=== PATIENT | male | born 1995 | race Caucasian/White ===

== ENCOUNTER 2017-04-05 12:29 | Emergency (ER) | payer MEDICAID ==
[2017-04-05 12:43] VITALS: BP 127/85
--- NOTE | 2017-04-05 13:35 | ED Physician Documentation ---
PD HPI UPPER EXT INJURY - Stated complaint Stated Complaint: R HAND INJURY - Chief complaint Chief Complaint: Ext Problem - History obtained from History obtained from: Patient - History of Present Illness Location: Right, Hand Type of injury: Fall Where injury occurred: Home Timing - onset: How many weeks ago (1) Timing - duration: Weeks (1) Timing - details: Abrupt onset, Still present Improved by: Rest, Immobilization Worsened by: Moving, Palpating Associated symptoms: Swelling. No: Weakness, Numbness Contributing factors: No: Anticoagulated Similar symptoms before: Has not had sx before Recently seen: Not recently seen - Additonal information Additional information: 21 y/o male alleges he fell down some steps about one week ago and has some swelling in his hand that has not gotten better. His swelling is over the distal hand over the 5th mc. Review of Systems Constitutional: denies: Fever Eyes: denies: Decreased vision Ears: denies: Ear pain Nose: denies: Congestion Throat: denies: Sore throat Respiratory: denies: Cough GI: denies: Vomiting Musculoskeletal: reports: Extremity pain, Joint pain, Joint swelling. denies: Neck pain, Back pain PD PAST MEDICAL HISTORY - Past Medical History Past Medical History: No - Past Surgical History Past Surgical History: Yes HEENT: Tonsil/Adenoidectomy - Present Medications Home Medications: Ambulatory Orders Medication Instructions Recorded Confirmed Tramadol HCl 50 - 100 mg PO Q6HR PRN #15 tablet 04/05/17 - Allergies Allergies/Adverse Reactions: Allergies Allergy/AdvReac Type Severity Reaction Status Date / Time No Known Drug Allergies Allergy Verified 04/05/17 12:42 - Social History Does the pt smoke?: No Smoking Status: Never smoker Does the pt drink ETOH?: No Does the pt have substance abuse?: No PD ED PE NORMAL - Vitals Vital signs reviewed: Yes (hypertensive) - General General: Alert and oriented X 3, No acute distress, Well developed/nourished - HEENT HEENT: Atraumatic, PERRL, EOMI - Respiratory Respiratory: No respiratory distress - Derm Derm: Normal color, Warm and dry, No rash - Extremities Extremities: Other (There is a deformity to the right hand over the distal 5th MC. The knuckle is missing and the area is tender. There is full ROM of the Impression: 1. Nondisplaced midshaft left claviclular fracture does not involve adjacent joints. MCP and PIP joints and the distal n/v is intact. ) - Neuro Neuro: No motor deficit, No sensory deficit - Psych Psych: Normal mood, Normal affect Results - Vitals Vitals: Vital Signs - 24 hr 04/05/17 12:40 Temperature 37.2 C Heart Rate 58 L Respiratory 16 Rate Blood Pressure 127/85 H O2 Saturation 100 Oxygen O2 Source Room air - Rads (name of study) right hand Radiology: Prelim report reviewed (Impression: 1. Distal right fifth metacarpal fracture with callus formation consistent with healing.), EMP read indepedently , See rad report Procedures - Splint (location) hand r Splint applied by: Tech Type of splint: Fiberglass, Ulnar gutter Other: Patient tolerated well, No complications, Neurovascular intact, Good alignment PD MEDICAL DECISION MAKING - ED course Complexity details: reviewed results, re-evaluated patient, considered differential, d/w patient ED course: 21 y/o male with a boxers fracture is placed into an ulnar gutter splint and referred to ortho for follow up. Departure - Departure Disposition: 01 Home, Self Care Clinical Impression: Boxers fracture Qualifiers: Encounter type: initial encounter Fracture type: closed Qualified Code(s): S62.309A - Unspecified fracture of unspecified metacarpal bone, initial encounter for closed fracture Condition: Stable Instructions: ED Matteo Metcalf Follow-Up: [facility] [Provider Group] Prescriptions: Tramadol HCl 50 - 100 mg PO Q6HR PRN #15 tablet PRN Reason: Pain Discharge Date/Time: 04/05/17 14:01
--- NOTE | 2017-04-05 13:36 | XRAY Preliminary Report ---
Exam: XR Hand 3 View RT IMPRESSION: 1. Distal right fifth metacarpal fracture with callus formation consistent with healing. [facility] SITE ID: [id number]
--- NOTE | 2017-04-05 13:39 | XRAY Report ---
EXAM: RIGHT HAND RADIOGRAPHY EXAM DATE: 04/05/2017 01:13 PM. CLINICAL HISTORY: Fall. Fifth metacarpal fracture. COMPARISON: None. TECHNIQUE: 3 views. FINDINGS: Bones: Distal right fifth metacarpal fracture is seen with mild radial displacement of the distal fr acture fragment and volar angulation. Callus formation is seen at the fracture margins. Fracture line s are well visualized. Joints: Normal. No subluxations. Soft Tissues: Soft tissue swelling. IMPRESSION: 1. Distal right fifth metacarpal fracture with callus formation consistent with healing. [facility] Referring Provider Line: [phone] SITE ID: [id number]
== END 2017-04-05 14:01 | disposition home or self-care (01) ==
LOC: EDBD → ED 12:29
DX: S62.306A Unspecified fracture of fifth metacarpal bone, right hand, initial encounter for closed fracture (principal); W10.9XXA Fall (on) (from) unspecified stairs and steps, initial encounter; Y92.018 Other place in single-family (private) house as the place of occurrence of the external cause
CPT/HCPCS: 29125; 99283